=== PATIENT | male | born 1995 | race Caucasian/White ===

== ENCOUNTER → 2023-07-31 11:51 | Outpatient (CLI) | payer OTHER, SELFPAY ==
--- NOTE | 2023-07-31 11:54 | DI.MRI.S_ITS ---
PROCEDURE: MR SHOULDER LT WO CON INDICATIONS: Pain in left shoulder TECHNIQUE: Noncontrast oblique coronal T2 fast spin echo with fat saturation, oblique sagittal T1 spin echo and T2 fast spin echo with fat saturation, axial T1 spin echo and T2 fast spin echo with fat saturation through the shoulder. COMPARISON: None. FINDINGS: Image quality: Excellent. Rotator cuff: Low-grade articular and bursal surface partial thickness tear involving distal supraspinatus at its insertion on the humeral head is seen extending to musculotendinous junction. Distal infraspinatus tendinosis is seen. The subscapularis tendon is intact. No full-thickness rotator cuff tendon rupture. Small calcifications are noted involving distal supraspinatus at its insertion on the humeral head concerning for calcific tendinitis. Sagittal images demonstrate no significant rotator cuff muscle atrophy. Bones and bursae: Shallow Hill-Sachs deformity in posterior lateral humeral head is seen. No marrow edema. No acute fracture or dislocation. No Bankart fracture. Mild acromioclavicular joint osteoarthritic changes are seen with joint space narrowing, subchondral sclerosis and small downward osteophyte formation depressing the musculotendinous junction of supraspinatus. The acromion demonstrates conventional anatomy, without an os acromiale. Small amount of joint fluid and subacromial subdeltoid bursal fluid is seen. No gross loose bodies. Capsule and soft tissues: There is subtle signal abnormality and fraying of anterior inferior labrum at 5 to 6 o'clock position suggestive of subtle anterior inferior labral tear. Low-grade partial-thickness tear involving inferior glenohumeral ligament is also noted. The long head of the biceps tendon demonstrates normal location and morphology. The rotator interval appears normal, without fibrosis. The coracohumeral ligament is normal in thickness. IMPRESSION: 1. Shallow chronic appearing Hill-Sachs deformity in posterior lateral humeral head. No acute fracture or dislocation. No Bankart fracture. Mild acromioclavicular joint osteoarthritis. Small amount of joint effusion and subacromial subdeltoid bursal fluid. No loose bodies. 2. Low-grade articular and bursal surface partial thickness tear involving distal supraspinatus extending to musculotendinous junction. Distal infraspinatus tendinosis. Possible calcific tendinitis involving anterior fibers of distal supraspinatus at its insertion on the humeral head. No full-thickness rotator cuff tendon rupture. 3. Suggestion of subtle anterior inferior labral tear at 5 to 6 o'clock position. Low-grade partial-thickness tear involving inferior glenohumeral ligament. Dictated by: Louie Shin M.D. on 07/31/2023 at 16:59 Approved by: Louie Shin M.D. on 07/31/2023 at 17:15
--- NOTE | 2023-07-31 11:54 | DI.MRI.S_ITS ---
PROCEDURE: MR CERVICAL SPINE WO CON INDICATIONS: Pain in left shoulder TECHNIQUE: Noncontrast sagittal T1 spin echo and T2 fast spin echo, sagittal STIR, foraminal oblique sagittal T2 fast spin echo, and axial gradient echo or T2 fast spin echo through the cervical spine. COMPARISON: None. FINDINGS: Image quality: Excellent. Alignment and Curvature: Straightening of the normal cervical lordosis. Bone Marrow: Marrow demonstrates normal overall signal. Spinal Cord: Visualized spinal cord has normal size and signal. No cerebellar tonsillar herniation. Paraspinous Soft Tissues: No paravertebral masses. Prevertebral soft tissues are normal in thickness. C2-C3: No central canal or neural foraminal stenosis. Mild disc desiccation. C3-C4: No central canal or neural foraminal stenosis. C4-C5: No central canal or neural foraminal stenosis. C5-C6: Mild facet and uncovertebral arthropathy. Mild disc desiccation. No central canal or neural foraminal stenosis. C6-C7: Disc desiccation. Mild facet and uncovertebral arthropathy. No central canal or neural foraminal stenosis. C7-T1: No central canal or neural foraminal stenosis. IMPRESSION: Mild degenerative changes of the cervical spine without central canal or neural foraminal stenosis. Dictated by: Ashu Rhodes M.D. on 07/31/2023 at 13:58 Approved by: Ashu Rhodes M.D. on 07/31/2023 at 14:01
== END ==
DX: M47.812 Spondylosis without myelopathy or radiculopathy, cervical region (principal); M48.02 Spinal stenosis, cervical region; M75.112 Incomplete rotator cuff tear or rupture of left shoulder, not specified as traumatic; M19.012 Primary osteoarthritis, left shoulder; M25.412 Effusion, left shoulder; M25.512 Pain in left shoulder
CPT/HCPCS: 72141; 73221